=== PATIENT | female | born 1960 | race Caucasian/White ===

== ENCOUNTER → 2025-01-13 14:22 | Outpatient (REF) | payer MEDICARE, SELFPAY | LOC: HWRAD 14:22 | PROVIDERS: ATTENDING PHYSICIAN Nurse Practitioner Adult Health | DX: E04.1 Nontoxic single thyroid nodule (principal) | CPT/HCPCS: 76536 ==

== ENCOUNTER → 2025-02-09 07:29 | Outpatient (REF) | payer MEDICARE, SELFPAY ==
[2025-02-09 07:54] VITALS: BP 117/63; BP_SYST 70
== END ==
LOC: RADI 07:29
PROVIDERS: ATTENDING PHYSICIAN Nurse Practitioner Adult Health
DX: E04.1 Nontoxic single thyroid nodule (principal)
CPT/HCPCS: 10005; 88173

== ENCOUNTER → 2025-03-15 14:33 | Outpatient (REF) | payer MEDICARE, SELFPAY | LOC: HWRAD 14:33 | PROVIDERS: ATTENDING PHYSICIAN Nurse Practitioner Adult Health | DX: Z78.0 Asymptomatic menopausal state (principal) | CPT/HCPCS: 77080 ==